=== PATIENT | male | born 1975 | race Two or more races ===

== ENCOUNTER 2022-07-23 01:13 | Emergency (ER) | payer MEDICAID, OTHER ==
[~2022-07-23] VITALS: Ht 175.3 cm; Wt 97.5 kg
[2022-07-23] MEDS ORDERED: VANCOMYCIN 1 GM VIAL ONE (01:49)
[2022-07-23] MEDS ORDERED: VANCOMYCIN 1 GM in IV D5W 250 ML IV ONE (02:00)
--- NOTE | 2022-07-23 02:00 | NUR ---
PATIENT BIB OFFICER WITH C/O OF SWELLING OF UPPER AND LOWER EXTREMITIES. PATIENT IS A/O X 4, RR EVEN AND UNLABORED, NO SOB NOTED. PATIENT VSS. WILL CONTINUE TO MONITOR.
--- NOTE | 2022-07-23 02:10 | NUR ---
covid swab collected
--- NOTE | 2022-07-23 02:16 | NUR ---
BLOOD WORK COLLECTED SENT TO LAB
[2022-07-23 02:29] LABS: BASOPHILS # (AUTO) 0.1 K/uL (0.0-0.2); BASOPHILS % (AUTO) 1.1 % (0.0-2.0); EOSINOPHILS % (AUTO) 3.4 % (0.0-6.0); HEMATOCRIT 32 % (39-51); LYMPHOCYTES # (AUTO) 1.3 K/uL (0.8-4.8); LYMPHOCYTES % (AUTO) 15.3 % (20.0-44.0); MEAN CORPUSCULAR HGB CONC 32 g/dl (31.0-36.0); MEAN CORPUSCULAR VOLUME 72 fL (80-96); MONOCYTES # (AUTO) 0.6 K/uL (0.1-1.30); MONOCYTES % (AUTO) 7.5 % (2.0-12.0); NEUTROPHILS # (AUTO) 6.2 K/uL (1.8-8.9); NEUTROPHILS % (AUTO) 72.7 % (43.0-81.0); PLATELET COUNT (AUTO) 520 K/uL (150-450); RED BLOOD CELL COUNT(AUTO) 4.39 MIL/uL (4.5-6.0); WHITE BLOOD COUNT (AUTO) 8.5 K/uL (4.3-11.0)
[2022-07-23 02:51] LABS: ALBUMIN 2.9 g/dL (3.4-5.0); BILIRUBIN,DIRECT 0.1 mg/dL (0.0-0.2); BILIRUBIN,TOTAL 0.2 mg/dL (0.2-1.0); CALCIUM, SERUM 8.6 mg/dL (8.5-10.1); CREATININE 1.1 mg/dL (0.6-1.3); POTASSIUM 4.1 mmol/L (3.5-5.1); TOTAL PROTEIN, SERUM 7.5 g/dL (6.4-8.2)
--- NOTE | 2022-07-23 07:15 | NUR ---
REceived pt from [facility] RN PT AWAKE AND ALERT RESPIRATION SPONT and easy no sob both lower extramity swallen with H/L ON RT FOOT intact
--- NOTE | 2022-07-23 07:30 | NUR ---
wating for transfer
[2022-07-23 07:40] VITALS: BP 145/79
--- NOTE | 2022-07-23 07:45 | NUR ---
ASSISST PT TO [facility] W[facility]kING WITH STADY GAIT no weekness no pain
--- NOTE | 2022-07-23 07:55 | NUR ---
Patient eloped from facility. ER MD notified. pt pull out H/L leftad on [place]
== END 2022-07-23 08:20 | disposition left against medical advice (07) ==
LOC: ER 01:25
DX: R60.0 Localized edema (principal); L03.114 Cellulitis of left upper limb; Z20.822 Contact with and (suspected) exposure to COVID-19; Z53.29 Procedure and treatment not carried out because of patient's decision for other reasons
CPT/HCPCS: 99285; 96365; 71045; 87426; 93005; 85025; 80048; 83605; 80076; 36415; 85730; 87081; 87040 ×2; 93970 ×2; J3370; C9803